=== PATIENT | female | born 1955 | race Caucasian/White ===

== ENCOUNTER → 2018-09-27 12:00 | Outpatient (CLI) | payer OTHER, SELFPAY ==
--- NOTE | 2018-09-27 12:00 | COLBX_PTH ---
PATIENT: KEVEN GARBER LOC: [facility] U#:[id number] AGE/SX: 69/F ROOM: RE09/27/[address]: Dr. Blayne Jin MD : 1955 BED: DIS: SPEC #: [id number] RECD: 09/27/18 15:13 STATUS: CAROLYNN JENNIFER #: [id number] MARYAM: 09/27/18 12:[address]: Blayne Jin DEPT: SURGICAL PATHOLOGY RECD BY: Tamara Escalona ENTERED: 09/28/18 08:40 SP TYPE: COLON BX OTHR DR: Dr. Mert Mock MD [facility] Tissues: Sigmoid colon biopsy Procedures: Surgery Specimen Level IV HEADER OPERATION: Colonoscopy with biopsy PRE-OP DIAGNOSIS: History of polyp TISSUE SUBMITTED: Distal sigmoid polyp biopsy, rule out adenoma MICROSCOPIC DIAGNOSIS Distal sigmoid polyp, biopsy: Tubular adenoma. Hyperplastic polyp. SJ:margarita 09/28/18 MICROSCOPIC DESCRIPTION Slides are reviewed. GROSS DESCRIPTION Received in fixative is one container labeled with the patient's name and designated distal sigmoid. The specimen consists of two irregular fragments of light kong soft tissue that in aggregate measure 0.5 x 0.3 x 0.1 cm. The specimen is totally submitted in one cassette. / SJ:margarita 09/27/18 TC:1 CPT: 54374
== END ==
PROVIDERS: Family Provider Family Medicine; PCP Family Medicine; Referring Provider Internal Medicine Gastroenterology; Visit Provider Internal Medicine Gastroenterology
DX: Z86.010 Personal history of colon polyps (principal)
CPT/HCPCS: 88305